=== PATIENT | female | born 1970 ===

== ENCOUNTER 2024-07-23 09:17 | Outpatient (REF) | payer OTHER, SELFPAY ==
[2024-07-23 14:27] LABS: HCT 37.3 % (36.0-46.0); HGB 11.9 g/dL (11.2-15.7); MCH 30.1 pg (27.0-33.0); MCHC 31.9 % (32.0-36.0); MCV 94 fL (80-95); MPV 11.2 fL (8.0-11.0); Platelet Count 203 10^3/uL (130-400); RBC 3.95 10^6/uL (3.93-5.22); RDW-SD 48.3 fL; WBC 5.87 10^3/uL (4.4-10.8)
[2024-07-23 16:16] LABS: ALT 16 U/L (14-59); AST 14 U/L (15-37); Albumin 3.9 g/dL (3.4-5.0); Alkaline Phosphatase 75 U/L (46-116); BUN 18 mg/dL (7-18); Bilirubin, Total 0.57 mg/dL (0.2-1.0); CREATININE 0.8 mg/dL (0.55-1.02); Calcium 9.5 mg/dL (8.5-10.1); Calculated LDL 160 mg/dL (<100); Chloride 108 mmol/L (98-107); Cholesterol 262 mg/dL (<200); Estimated GFR 86.96 (mL/min/1.73m2); Glucose 95 mg/dL (74-106); HDL Cholesterol 78 mg/dL (40-60); Potassium 3.9 mmol/L (3.5-5.1); Sodium 145 mmol/L (136-145); TSH 1.48 uIU/mL (0.36-3.74); Total Protein 7.3 g/dL (6.4-8.2); Triglyceride 123 mg/dL (<150)
[2024-07-23 18:17] LABS: Hemoglobin A1C 5.6 % (<5.7)
== END 2024-07-23 09:18 | disposition home or self-care (01) ==
LOC: NCHCN 09:17
PROVIDERS: Visit Provider Physician Assistant
DX: R53.83 Other fatigue (principal); E78.00 Pure hypercholesterolemia, unspecified
CPT/HCPCS: 80053; 80061; 85027; 83036; 84443